=== PATIENT | male | born 1945 | race Caucasian/White ===

== ENCOUNTER → 2023-12-21 | Day surgery (SDC) | payer MEDICARE ==
[~2023-12-21] VITALS: Ht 175.2 cm; Wt 66.2 kg
[~2023-12-21] MED LIST: ATROPINE SULFATE 1% 2 ML BOTTLE ONE; ATROPINE SULFATE 1% 2 ML BOTTLE OPH SCH; Balanced Salt Solution 500 ML OPH SCH; Cefuroxime Sodium 5 MG in BALANCED SALT IRRIG SOLN NO.2 0.5 ML,SYRINGE, DISPOSABLE, 10 ... IO SCH; Cyclopentolate Hydrochloride 1% 2 ML BOTTLE OPH ONE; Cyclopentolate Hydrochloride 1% 2 ML BOTTLE OPH SCH; LOVASTATIN40 MG PO; OFLOXACIN 0.3% 5 ML BOTTLE ONE; OFLOXACIN 0.3% 5 ML BOTTLE OPH SCH; PHENYLEPHRINE/KETOROLAC 4 ML in Balanced Salt Solution 500 ML OPH SCH; POVIDONE IODINE 5% OPHTHALMIC 30 ML BOTTLE OPH ONE; POVIDONE IODINE 5% OPHTHALMIC 30 ML BOTTLE OPH SCH; Phenylephrine Hydrochloride 2 ML BOT OPH ONE; Phenylephrine Hydrochloride 2 ML BOT OPH SCH; Proparacaine Hydrochloride 15 ML BOT OPH ONE; Proparacaine Hydrochloride 15 ML BOT OPH SCH; SODIUM CHLORIDE 0.9% 1,000 ML IV SCH; TENORMIN25 M1 PO; TROPICAMIDE 3 ML BOT OPH ONE; TROPICAMIDE 3 ML BOT OPH SCH; TRYPAN BLUE 0.5 ML SYR INTRAOC ONE; TRYPAN BLUE 0.5 ML SYR INTRAOC SCH; Tetracaine Hydrochloride 0.5% 4 ML BOT OPH ONE; Tetracaine Hydrochloride 0.5% 4 ML BOT OPH SCH; prednisoLONE acetate 1% OPHTHALMIC 5 ML BOT OPH ONE; prednisoLONE acetate 1% OPHTHALMIC 5 ML BOT OPH SCH
[2023-12-21 13:50] VITALS: BP 112/62
[2023-12-21 15:26] VITALS: BP 120/60
[2023-12-21 15:40] VITALS: BP 130/64
[2023-12-21 15:56] VITALS: BP 110/60
== END | disposition home or self-care (01) ==
LOC: SDC 12-16 11:00
PROVIDERS: ATTEND Ophthalmology
DX: H25.12 Age-related nuclear cataract, left eye (principal); I10 Essential (primary) hypertension; E78.00 Pure hypercholesterolemia, unspecified; Z79.899 Other long term (current) drug therapy; Z98.890 Other specified postprocedural states

== ENCOUNTER → 2024-01-25 | Day surgery (SDC) | payer MEDICARE ==
[~2024-01-25] VITALS: Ht 175.2 cm; Wt 66.2 kg
[~2024-01-25] MED LIST changes: -Cyclopentolate Hydrochloride 1% 2 ML BOTTLE OPH ONE; -Cyclopentolate Hydrochloride 1% 2 ML BOTTLE OPH SCH; +Midazolam Hydrochloride 2 MG/2 ML VIAL IV ONE; -TRYPAN BLUE 0.5 ML SYR INTRAOC ONE
[2024-01-25 13:15] VITALS: BP 161/70
[2024-01-25 14:44] VITALS: BP 131/64
[2024-01-25 15:00] VITALS: BP 112/67
[2024-01-25 15:10] VITALS: BP 116/70
== END | disposition home or self-care (01) ==
LOC: SDC 01-20 16:15
PROVIDERS: ATTEND Ophthalmology
DX: H25.11 Age-related nuclear cataract, right eye (principal); I10 Essential (primary) hypertension; E78.00 Pure hypercholesterolemia, unspecified; Z87.891 Personal history of nicotine dependence; Z98.42 Cataract extraction status, left eye; Z98.890 Other specified postprocedural states; Z79.899 Other long term (current) drug therapy; Z91.040 Latex allergy status; Z91.018 Allergy to other foods; Z91.041 Radiographic dye allergy status; Z88.8 Allergy status to other drugs, medicaments and biological substances